=== PATIENT | female | born 1940 | race Caucasian/White ===

== ENCOUNTER → 2017-09-29 | Day surgery (SDC) | payer OTHER, MEDICARE ==
[~2017-09-29] VITALS: Ht 167.6 cm; Wt 87.1 kg
[~2017-09-29] MED LIST: ALENDRONATE SOD70 MG PO; AMLODIPINE10 MG PO; CALCIUM + D 6001 TAB PO; COUMADIN 2.5 M2.5 MG PO; COUMADIN 5 MG TA5 MG PO; FUROSEMIDE20 MG PO; GEMFIBROZIL600 MG PO; LISINOPRIL20 MG PO; MASON NATURAL1200 MG PO; METOPROLOL TART50 M1 PO; PHARMASSURE MA500 MG PO; PREDNISONE10 M2 PO; TOPROL XL25 MG PO; VERAPAMIL ER180 M1 PO; VITAMIN D32000 I1 PO
--- NOTE | 2017-09-29 13:03 | Operative Report ---
Operative/Inv Procedure Report Surgery Date: 09/29/17 Name of Procedure: Cataract extraction lens implant a right eye Pre-Operative Diagnosis: Age-related cataract right eye 20/50 vision Post-Operative Diagnosis: Same Estimated Blood Loss: none Surgeon/Manager Spanish: Ruben VICKERS,Duncan Tao Anesthesia: local monitored anesthesi Complications: None Operative/Procedure Note Note: The patient was brought to the operating room standard monitoring equipment was attached the patient was prepped and draped in the usual fashion for intraocular surgery. A lid speculum was placed to retract the lids. The case was begun by making a temporal incision with a 2.4 mm keratome. The eye was stabilized with a Wang ring during this incision. 1 mL of non-preserved lidocaine was introduced into the anterior chamber to provide anesthesia. The anterior chamber was then filled and deepened with viscoelastic. A curvilinear capsulorrhexis was achieved using a 30-gauge needle and is a cystotome and capsulorrhexis was finished using a Utrata forceps. A second or paracentesis incision was made temporally with a 1 mm MVR blade. The lens was then hydrodissected with balanced salt solution and found to be rotatable. The lens was emulsified using phacoemulsification and a modified four-quadrant cracking technique. The residual cortical material was removed using automated irrigation and aspiration and as much of the anterior capsular rim was cleaned as well as possible. The posterior capsule was cleaned first with the automated machine on a low setting and then manually with a Ludwin squeegee. The capsular bag was deepened with viscoelastic. The lens a Technis 1 21.0 Diopter placed into the bag under direct visualization and rotated so that the haptics were at 12 and 6:00. Viscoelastic was then removed from the eye by flushing it out and then by automated irrigation and aspiration. The eye was pressurized to a normal tone. 1/10 of a cc of cefuroxime solution was introduced into the anterior chamber to provide antibiotic prophylaxis. The wounds were sealed by hydrating the stroma adjacent to them and the eye was left at a proper tone after the wounds were checked and found not to be leaking. The lid speculum was removed from the orbit. Antibiotic and steroid drops were placed on the eye and then the eye was shielded. Monitoring equipment was removed from the patient and the patient was removed from the operative suite to the holding area. The patient tolerated the procedure well and will be seen in the office tomorrow.
== END ==
LOC: STS 01:16
DX: H25.9 Unspecified age-related cataract (principal); I10 Essential (primary) hypertension; E07.9 Disorder of thyroid, unspecified; M19.90 Unspecified osteoarthritis, unspecified site; Z95.0 Presence of cardiac pacemaker
CPT/HCPCS: V2632

== ENCOUNTER → 2017-11-09 | Day surgery (SDC) | payer OTHER, MEDICARE ==
[~2017-11-09] VITALS: Ht 167.6 cm; Wt 87.1 kg
--- NOTE | 2017-11-09 11:23 | Operative Report ---
Operative/Inv Procedure Report Surgery Date: 11/09/17 Name of Procedure: Cataract extraction lens implantation left eye Pre-Operative Diagnosis: Age-related cataract left eye 20/50 vision Post-Operative Diagnosis: Same Estimated Blood Loss: none Surgeon/Museum Tour Guide: Ruben VICKERS,Duncan Tao Anesthesia: local monitored anesthesi Complications: None Operative/Procedure Note Note: The patient was brought to the operating room standard monitoring equipment was attached the patient was prepped and draped in the usual fashion for intraocular surgery. A lid speculum was placed to retract the lids. The case was begun by making 1 partial-thickness corneal relaxing incision at 85. A temporal incision with a 2.4 mm keratome. The eye was stabilized with a Wang ring during this incision. 1 mL of non-preserved lidocaine was introduced into the anterior chamber to provide anesthesia. The anterior chamber was then filled and deepened with viscoelastic. A curvilinear capsulorrhexis was achieved using a 30-gauge needle and is a cystotome and capsulorrhexis was finished using a Utrata forceps. A second or paracentesis incision was made temporally with a 1 mm MVR blade. The lens was then hydrodissected with balanced salt solution and found to be rotatable. The lens was emulsified using phacoemulsification and a modified four-quadrant cracking technique. The residual cortical material was removed using automated irrigation and aspiration and as much of the anterior capsular rim was cleaned as well as possible. The posterior capsule was cleaned first with the automated machine on a low setting and then manually with a Ludwin squeegee. The capsular bag was deepened with viscoelastic. The lens a Technis 1 20.0 diopter placed into the bag under direct visualization and rotated so that the haptics were at 12 and 6:00. Viscoelastic was then removed from the eye by flushing it out and then by automated irrigation and aspiration. The eye was pressurized to a normal tone. 1/10 of a cc of cefuroxime solution was introduced into the anterior chamber to provide antibiotic prophylaxis. The wounds were sealed by hydrating the stroma adjacent to them and the eye was left at a proper tone after the wounds were checked and found not to be leaking. The lid speculum was removed from the orbit. Antibiotic and steroid drops were placed on the eye and then the eye was shielded. Monitoring equipment was removed from the patient and the patient was removed from the operative suite to the holding area. The patient tolerated the procedure well and will be seen in the office tomorrow.
== END ==
LOC: STS 03:49
DX: H25.9 Unspecified age-related cataract (principal); I10 Essential (primary) hypertension; E07.9 Disorder of thyroid, unspecified; Z95.0 Presence of cardiac pacemaker; Z79.01 Long term (current) use of anticoagulants
CPT/HCPCS: J2250; V2632